=== PATIENT | male | born 1940 | race Caucasian/White ===

== ENCOUNTER → 2017-10-11 | Outpatient (CLI) | payer OTHER ==
[2015-10-15 10:45] VITALS: BP 149/82
[~2017-10-11] MED LIST: ASPI-630 PO; ATOR20TA58 PO; CALC625T PO; HYOS0.1264 PO; LISI10TA2 PO; MULT-245 PO; OMEG1CAP16 PO; OMEP40CA5 PO; PRAV40TA2 PO
--- NOTE | 2017-10-11 10:23 | RAD ---
Ultrasound soft tissue neck 10/11/2017 Clinical indications: Cervical lymph node enlargement. Comparison: None. Findings: There are mildly prominent bilateral cervical lymph nodes, largest on the right measures up to 0.5 cm with possible loss of the fatty hilum, and the largest on the left measuring up to 0.5 cm also with possible loss of the fatty hilum. Impression: Normal-sized bilateral lymph nodes, however possible loss of the fatty antonia and are indeterminate. Follow-up ultrasound in 3 months is recommended.
== END | disposition home or self-care (01) ==
LOC: US 08:22
PROVIDERS: ATTEND Family Medicine
DX: R59.9 Enlarged lymph nodes, unspecified (principal); F17.200 Nicotine dependence, unspecified, uncomplicated; Z72.89 Other problems related to lifestyle
CPT/HCPCS: 76536

== ENCOUNTER → 2017-10-25 | Outpatient (CLI) | payer OTHER ==
[2015-10-15 10:45] VITALS: BP 149/82
[~2017-10-25] MED LIST changes: +IOHEXOL 300 MG/ML 75 ML VIAL. IV ONE
[2017-10-25 11:16] LABS: GFR 72.8
--- NOTE | 2017-10-25 12:39 | RAD ---
Examination: CT angiography chest HISTORY: History of COPD, shortness of breath COMPARISON: 09/08/2014 TECHNIQUE: Axial CT angiography images were performed with IV contrast. Coronal and sagittal 3-D MIP reformats are performed Exposure: One or more of the following individualized dose reduction techniques were utilized for this examination: 1. Automated exposure control 2. Adjustment of the mA and/or kV according to patient size 3. Use of iterative reconstruction technique FINDINGS: The visualized thyroid gland grossly appears unremarkable. The central airways are patent. Mild cardiomegaly. Mild coronary artery calcifications. There is no evidence of filling defect identified in the main pulmonary arterial trunk and right and left main pulmonary arteries and the visualized lobar, segmental branches of the pulmonary arteries. Moderate distended/dilated esophagus or transposed colon again identified. There is a 4 mm pulmonary nodule identified in the right upper lobe of the lung grossly similar to prior exam Calcified granulomas identified in the bilateral lungs. No evidence of pleural effusion or pneumothorax. The visualized liver, spleen, adrenals grossly appears unremarkable. Partially visualized aortic stent graft identified in the abdomen. Moderate degenerative changes thoracic spine. IMPRESSION: 1. No evidence of pulmonary embolism. 2. Moderate distended/dilated esophagus or transposed colon again identified. 3. 4 mm pulmonary nodule right upper lobe of the lung grossly similar to prior exam. Electronically signed by: Des Bentley MD (10/25/2017 12:36 PM) [id number]
== END | disposition home or self-care (01) ==
LOC: CT 10:25
PROVIDERS: ATTEND Family Medicine
DX: R06.3 Periodic breathing (principal); J44.9 Chronic obstructive pulmonary disease, unspecified; R91.1 Solitary pulmonary nodule; F17.200 Nicotine dependence, unspecified, uncomplicated
CPT/HCPCS: 36415; 71275; 82565; 84520; Q9967

== ENCOUNTER 2020-05-26 07:45 | Observation (INO) | payer MEDICARE, OTHER ==
[~2020-05-26] VITALS: Ht 165.1 cm; Wt 70.5 kg
[~2020-05-26 07:45] MED LIST changes: -IOHEXOL 300 MG/ML 75 ML VIAL. IV ONE; +OMEP40CA45 PO; -OMEP40CA5 PO
--- NOTE | 2020-05-26 08:07 | PHYS DOC ---
Past History Past Medical History: GERD, High Cholesterol, Hypertension Past Surgical History: Other Smoking: Non-smoker Alcohol Use: None Drug Use: None General Adult EDM: Chief Complaint: CHEST PAIN HPI: HPI: 79-year-old male past medical history AAA w/stent graft, HTN, HLD, GERD w/ Wanda fundoplication, esophageal strictures and cataracts, presents to the ED with c/o "I think I had a heart attack, or maybe it'smy closed esophagus," c/o left sided chest pain described as a dull ache for the past week, presents within 5-10 minutes of waking with assocaited clamminess, for the past week. States he had a G-tube placed at [facility] maybe 6 months ago and since then has tried to eat solids, is concerned maybe he has food stuck. 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 EMR was reviewed and patient is CT of the chest in October 2017 that showed aortic aneurysm with stent graft placement, mild cardiomegaly and coronary artery calcifications. No associated syncope. On no AC. Review of Systems: Review of Systems: Constitutional: Denies fever or chills Eyes: Denies change in visual acuity HENT: Denies nasal congestion or sore throat Respiratory: Denies cough or shortness of breath Cardiovascular: Denies edema GI: Denies abdominal pain, nausea, vomiting, bloody stools or diarrhea : Denies dysuria Musculoskeletal: Denies back pain or joint pain Integument: Denies rash Neurologic: Denies headache, focal weakness or sensory changes Endocrine: Denies polyuria or polydipsia Lymphatic: Denies swollen glands Psychiatric: Denies depression or anxiety Heart Score: HEART Score for Chest Pain: HEART Score for Chest Pain Response (Comments) Value History Moderately Suspicious 1 ECG Nonspecific Repolarizatio 1 Age > 65 2 Risk Factors 1 or 2 Risk Factors 1 Troponin < Normal Limit 0 Total 5 Risk Factors: Risk Factors: DM, Current or recent (<one month) smoker, HTN, HLP, family history of CAD, obesity. Risk Scores: Score 0 - 3: 2.5% MACE over next 6 weeks - Discharge Home Score 4 - 6: 20.3% MACE over next 6 weeks - Admit for Clinical Observation Score 7 - 10: 72.7% MACE over next 6 weeks - Early Invasive Strategies Allergies: Allergies: Allergies Coded Allergies Type Severity Reaction Last Updated Verified No Known Drug Allergies 10/15/15 No Physical Exam: PE: Constitutional: Well developed, well nourished, no acute distress, non-toxic robles earance. [] HENT: Normocephalic, atraumatic, bilateral external ears normal, oropharynx moist, no oral exudates, nose normal. [] Eyes: PERRLA, EOMI, conjunctiva normal, no discharge. [] Neck: Normal range of motion, no tenderness, supple, no stridor. [] Cardiovascular:Heart rate regular rhythm, no murmur [] Lungs & Thorax: Bilateral breath sounds clear to auscultation [] Abdomen: Bowel sounds normal, soft, no tenderness, no masses, no pulsatile masses. [] Skin: Warm, dry, no erythema, no rash. [] Back: No tenderness, no CVA tenderness. [] Extremities: No tenderness, no cyanosis, no clubbing, ROM intact, no edema. [] Neurologic: Alert and oriented X 3, normal motor function, normal sensory function, no focal deficits noted. [] Psychologic: Affect normal, judgement normal, mood normal. [] Current Patient Data: Vital Signs: Vital Signs Date Time Temp Pulse Resp B/P (MAP) Pulse Ox O2 Delivery O2 Flow Rate FiO2 05/26/20 07:45 98.2 103 18 161/106 (124) 99 Room Air EKG: EKG: Sinus rhythm with prolonged NM interval 216, QTC 478, T wave inversions 1 and aVL, irregular rhythm, no ST elevations or ST depressions, Q waves in 3 and aVF compared with prior ekg from 02/2014, TWIs and Q waves are new Repeat EKG at 839 shows sinus rhythm with first-degree AV block, NM is 238, QTc 429, T wave inversion in 1 aVL with Q waves in 3 and aVF, no ST elevations or ST depressions Radiology/Procedures: Radiology/Procedures: []IMAGING REPORT Signed PATIENT: YAYO JASSO ACCOUNT: [id number] : 1940 LOCATION: ER AGE: 79 SEX: M EXAM STATUS: REG ER ORD. PHYSICIAN: DENIA MUKHERJEE DO REASON: none PROCEDURE: PORTABLE CHEST 1V AP chest x-ray HISTORY: History of COPD and shortness of breath. 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 Heart size normal. No pneumothorax. No pulmonary opacities. No pleural effusions. Calcified granuloma right lung base stable. Bones unremarkable. IMPRESSION: No acute process. Incidental finding stable to prior imaging as described above. Electronically signed by: Uvaldo Osman MD (05/26/2020 8:17 AM) [id number] DICTATED AND SIGNED BY: UVALDO OSMAN MD DATE: 05/26/20816 CC: HIWOT DUMONT MD; [facility] DO ~ Course & Med Decision Making: Course & Med Decision Making Pertinent Labs and Imaging studies reviewed. (See chart for details) Concern for chest pain in a moderate risk pt with new ekg findings and no prior cardiac workup. Pt also with elevated Cr of 1.6. Trop < 0.017. CXR with dilated esophagus seen on prior CT chest, no wide mediastinum. Heart score 5. I discussed with Dr. Husain who will follow up with patient with full consultation at [facility]. Dr. Dumont accepts hospital admission. Patient stable at time of admission and agrees with this plan. I have spoken with the patient and/or caregivers. I have explained the patient's condition, diagnosis and treatment plan based on the information available to me at this time. I have answered the patient's and/or caregivers questions and answered any concerns. The patient and/or caregivers have as good an understanding of the patient's diagnosis, condition and treatment plan as can be expected at this point. The patient has been stabilized within the capability of the emergency department. The patient will be transported for further care and management or will be moved to an observation or inpatient service. I have communicated with the staff or medical practitioner taking over this patient's care. Junaid Disclaimer: Junaid Disclaimer: This electronic medical record was generated, in whole or in part, using a voice recognition dictation system. Departure Departure: Impression: Primary Impression: Chest pain at rest Additional Impressions: JODI (acute kidney injury) T wave inversion in electrocardiogram Disposition: 09 ADMITTED INPATIENT Admitting Physician: Hiwot Dumont Condition: STABLE Referrals: HIWOT DUMONT MD (PCP) Justification of Admission: Justification of Admission: Justification of Admission Dx: Yes Angina: [facility] DENIA MUKHERJEE DO May 26, 2020 08:07
[2020-05-26 08:11] LABS: BASO # 0.1 x10^3/uL (0.0-0.2); BASO % 1 % (0-3); EOS # 0.1 x10^3/uL (0.0-0.7); EOS % 1 % (0-3); HEMATOCRIT 47.1 % (39.0-53.0); HEMOGLOBIN 16.3 g/dL (13.0-17.5); LYMPH # 3.6 x10^3/uL (1.0-4.8); LYMPH % 46 % (24-48); MEAN CORPUSCULAR HEMOGLOBIN 33 pg (25-35); MEAN CORPUSCULAR HGB CONC 35 g/dL (31-37); MEAN CORPUSCULAR VOLUME 95 fL (79-100); MONO # 0.6 x10^3/uL (0.0-1.1); MONO % 8 % (0-9); NEUT # 3.5 x10^3uL (1.8-7.7); NEUT % 45 % (31-73); PLATELET COUNT 224 x10^3/uL (140-400); RED BLOOD COUNT 4.97 x10^6/uL (4.30-5.70); RED CELL DISTRIBUTION WIDTH 13.1 % (11.5-14.5); WHITE BLOOD COUNT 7.9 x10^3/uL (4.0-11.0)
--- NOTE | 2020-05-26 08:20 | RAD ---
AP chest x-ray HISTORY: History of COPD and shortness of breath. 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 Heart size normal. No pneumothorax. No pulmonary opacities. No pleural effusions. Calcified granuloma right lung base stable. Bones unremarkable. IMPRESSION: No acute process. Incidental finding stable to prior imaging as described above. Electronically signed by: Jonathan Osman MD (05/26/2020 8:17 AM) [id number]
[2020-05-26 08:22] LABS: CREATININE 1.6 mg/dL (0.7-1.3); GFR 42.1; POTASSIUM 4.1 mmol/L (3.5-5.1)
--- NOTE | 2020-05-26 08:23 | EKG ---
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
[2020-05-26 08:34] LABS: ALBUMIN/GLOBULIN RATIO 0.9 (1.0-1.7); MAGNESIUM 2.3 mg/dL (1.8-2.4); TOTAL BILIRUBIN 0.3 mg/dL (0.2-1.0); TOTAL PROTEIN 8.4 g/dL (6.4-8.2)
--- NOTE | 2020-05-26 08:47 | EKG ---
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
--- NOTE | 2020-05-26 11:27 | NUR ---
Pt arrived to [facility] via EMS in stable condition. Pt alert/oriented, see VS. Pt belongings include watch, clothing, shoes, mask. Pt gave cell phone to his , though she may bring it up later. Pt skin is intact except for abrasion on L forearm, he sustained from his dog on 05/25. Dr Johnson notified of patients arrival.
[2020-05-26 11:34] VITALS: BP 120/80
--- NOTE | 2020-05-26 13:04 | PDOC ---
PROVIDER NOTE PROVIDER NOTE PROVIDER NOTE CC: Epigastric pain HPI: 79 y.o male presenting with epigastric discomfort similar to his prior GI issues from esophageal strictures. Denies any exertional angina or chest pain. EKG reviewed from ER, no acute findings. Pmhx: GERD s/p janet HTN DLP Sochx: No alcohol,tob or illicits. ALL: NKDa Meds reviewed. Cardiovascular: Normal heart sounds Respiratory: Normal breath sounds Abdomen: Soft, nontender, normal bowel sounds Mental Status: Alert, oriented X 3 Labs reviewed. Imaging reviewed. Impression: 1. non-cardiac chest pain. EKG/Trop wnl 2. GERD with esophageal dilation. Recs: 1. No further CV testing needed. 2. Consider outpt testing if GI eval does not improve symptoms. Pls call with questions. Thanks Justification of Admission: Justification of Admission: Justification of Admission Dx: Yes Angina: Symp at Rest TESSIE DOMINGUEZ MD May 26, 2020 13:04
--- NOTE | 2020-05-26 13:38 | HP ---
ADMIT DATE: 05/26/2020 HISTORY OF PRESENT ILLNESS: A 79-year-old male came in with intermittent chest pain. The patient had an AAA with stent graft and several other surgeries on his esophagus; although, he said he felt like he was having a heart attack, came in through the ER, was admitted for rule out AK protocol. Consult with silverware assembler, who felt the patient was stable to stay here. The patient has had a significant past medical history including tinnitus, cataracts, hypercholesterolemia, TB spots, it is not quite clear if he had actually tuberculosis or treated for it; abdominal surgery for esophageal strictures and a PEG tube placement for which he receives 5 bottles of Ensure Plus from 9:00 p.m. to 5 in the morning. He has had severe GERD and arthritis. He has had esophageal closures, wears dentures, blood disorders, anemia, had blood transfusions. He has had ulcer surgery. Vaccinations are up-to-date. On his esophageal strictures, the patient has had Wanda fundoplication esophageal strictures are noted. Because of these strictures, he has had the feeding tube placed in his stomach. PAST SURGICAL HISTORY: The patient notes he has dull achiness for the past week, present with 5-10 minutes of walking and associated clamminess. He is claiming otherwise. FAMILY HISTORY: Unremarkable. MEDICATIONS: Only include Levsin 1 tablet p.o. b.i.d. and Lipitor 20 mg a day. ALLERGIES: No known allergies. SOCIAL HISTORY: The patient denies smoking, alcohol or drug use presently. He is a full code. REVIEW OF SYSTEMS: Outside of his chest discomfort with walking, he denies any headaches, visual changes, blurred vision, double vision. Does have problems with esophageal regurgitation. He said he tried to eat by mouth and he leaned over and things came back up. He says he has bowel movements. He denies any problem with urination and neurologically intact. PHYSICAL EXAMINATION: GENERAL: Very pleasant gentleman, looks a little frightened, otherwise, unremarkable. VITAL SIGNS: Blood pressure 158/78, respiratory rate 18, pulse 103, temperature 98.2, 98% oxygen saturation. The patient is a pleasant gentleman. HEENT: Atraumatic, balding. Mouth and throat: Poor dentition. NECK: Supple. LUNGS: Diminished throughout. CARDIOVASCULAR: Regular sinus rhythm. S1, S2, without murmur, rub, thrill, or extra heart sounds. ABDOMEN: Soft. Feeding tube placement as noted. Triple lumen PEG tube placement, was placed initially I guess in 2016, 3 ports otherwise soft. Positive bowel sounds. No hepatosplenomegaly. EXTREMITIES: No clubbing, cyanosis or edema. GENITALIA: Normal male genitalia. NEUROLOGIC: Alert and oriented. Speech is fluent, spontaneous, appropriate. Cranial nerves 2-12 grossly intact. LABORATORY DATA: Chest x-ray taken down in the ER unremarkable. We will get a CAT scan. BUN and creatinine 13 and 1.6. Cardiac enzymes so far negative. Alkaline phosphatase 138. Albumin stable. The patient will be admitted to rule out AK protocol, get CT scan to check on the aortic aneurysm and strictures. The patient otherwise will continue to be monitored carefully, make further evaluation on him as indicated, feedings per PEG tube, monitored for any change in cardiac silhouette. EKG, not available. Anyway, we will continue to monitor. IMPRESSION: Chest pain, unknown etiology, esophageal strictures, PEG tube feedings, chronic kidney disease stage 3. Previous CT scans show coronary calcification. We will repeat a CT and make further evaluation on him as indicated per those results. HIWOT DUMONT MD DR: MIO/laura JOB#: [id number] / [id number]
[2020-05-26 15:00] VITALS: BP 145/83
--- NOTE | 2020-05-26 18:26 | NUR ---
Nurse in room to check on patient, patient complaining of chest pain rating 4/10 on the pain scale, requesting something 'more than tylenol for pain.' Dr Johnson notified of patient change in status and request for pain medication. New orders for EKG and morphine 2mg IV Q4 PRN. Orders placed. VS obtained BP 153/80 HR88, R20, 94% on RA, 98.0*
[2020-05-26 18:31] VITALS: BP 153/80
[2020-05-26] MEDS: MORPHINE SULFATE 2 MG/ML DISP.SYRIN. IV PRN (18:36)
--- NOTE | 2020-05-26 18:44 | EKG ---
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
[2020-05-26 20:32] VITALS: BP 117/75
[2020-05-26] MEDS ORDERED: HYOSCYAMINE 0.125 MG TAB.RAPDIS PO SCH (21:00)
[2020-05-26] MEDS ORDERED: ATORVASTATIN CALCIUM 20 MG TABLET PO SCH (21:00)
[2020-05-26] MEDS: SMZ/TMP 800/160MG TABLET. PO SCH (21:01)
[2020-05-26 23:16] VITALS: BP 122/74
[2020-05-27 05:53] VITALS: BP 131/68
[2020-05-27] MEDS: MORPHINE SULFATE 2 MG/ML DISP.SYRIN. IV PRN (06:17)
[2020-05-27] MEDS ORDERED: LACTOBACILLUS RHAMNOSUS GG 1 CAPSULE. PO SCH (09:00)
[2020-05-27] MEDS: SMZ/TMP 800/160MG TABLET. PO SCH (10:11)
[2020-05-27 11:00] VITALS: BP 122/74
[2020-05-27] MEDS ORDERED: ESOM40CA PO (11:28)
[2020-05-27] MEDS ORDERED: Smz/Tmp 800/160MG PO (11:28)
== END 2020-05-27 12:00 | disposition home or self-care (01) ==
LOC: ER 07:45 → 1 SOUTH 09:59 → INTOOBSV 09:59
PROVIDERS: ADMIT Family Medicine; ATTEND Family Medicine
DX: R07.89 Other chest pain (principal); N17.9 Acute kidney failure, unspecified; K22.2 Esophageal obstruction; I12.9 Hypertensive chronic kidney disease with stage 1 through stage 4 chronic kidney disease, or unspecified chronic kidney disease; N18.3 Chronic kidney disease, stage 3 (moderate); R94.31 Abnormal electrocardiogram [ECG] [EKG]; I71.4 Abdominal aortic aneurysm, without rupture; E78.00 Pure hypercholesterolemia, unspecified; K21.9 Gastro-esophageal reflux disease without esophagitis; M19.90 Unspecified osteoarthritis, unspecified site; D64.9 Anemia, unspecified; Z98.890 Other specified postprocedural states; Z95.1 Presence of aortocoronary bypass graft
CPT/HCPCS: 36415; 71045; 80053; 83690; 83735; 83880; 84484; 85025; 85610; 85730; 93005; 96374; 96376; 99285; G0378; J2270; G0379

== ENCOUNTER 2020-06-23 12:43 | Emergency (ER) | payer MEDICARE ==
[~2020-06-23] VITALS: Ht 165.1 cm; Wt 71.6 kg
[~2020-06-23 12:43] MED LIST changes: +ESOM40CA PO; +Smz/Tmp 800/160MG PO
--- NOTE | 2020-06-23 12:51 | PHYS DOC ---
Past History Past Medical History: GERD, High Cholesterol, Hypertension Past Surgical History: Other Smoking: Non-smoker Alcohol Use: None Drug Use: None General Adult HPI: HPI: The history was obtained from the patient. Patient is a 79-year-old man with PMH multiple comorbidities who presents with a chief complaint of PEG tube malfunction. Patient states he recently had PEG tube placed 4 days ago. He states that he feels as though the PEG tube has become slightly dislodged. He states PEG tube not fall out of his stoma but he feels that is longer than usual. Denies any injury. Denies vomiting. States he is entirely PEG tube dependent for nutrition that he gives himself overnight. Denies any abdominal pain. Chart review was performed and patient has a history of abdominal surgery for esophageal strictures and a PEG tube placement for which he receives 5 bottles of Ensure Plus from 9:00 p.m. to 5 in the morning. He has had severe GERD. He has had ulcer surgery. On his esophageal strictures, the patient has had Wanda fundoplication esophageal strictures are noted. Because of these strictures, he has had the feeding tube placed in his stomach. I did speak with the patient's GI specialist Dr. Cobian he states that the PEG tube was adjusted 4 days ago but he has had the stoma for approximately a year. Review of Systems: Review of Systems: Constitutional: Denies fever or chills Eyes: Denies change in visual acuity HENT: Denies nasal congestion or sore throat Respiratory: Denies cough or shortness of breath Cardiovascular: Denies chest pain or edema GI: PEG tube dislodgment : Denies dysuria Musculoskeletal: Denies back pain or joint pain Integument: Denies rash Neurologic: Denies headache, focal weakness or sensory changes Endocrine: Denies polyuria or polydipsia Lymphatic: Denies swollen glands Psychiatric: Denies depression or anxiety Heart Score: Risk Factors: Risk Factors: DM, Current or recent (<one month) smoker, HTN, HLP, family history of CAD, obesity. Risk Scores: Score 0 - 3: 2.5% MACE over next 6 weeks - Discharge Home Score 4 - 6: 20.3% MACE over next 6 weeks - Admit for Clinical Observation Score 7 - 10: 72.7% MACE over next 6 weeks - Early Invasive Strategies Allergies: Allergies: Allergies Coded Allergies Type Severity Reaction Last Updated Verified No Known Drug Allergies 10/15/15 No Physical Exam: PE: Constitutional: Well developed, well nourished, no acute distress, non-toxic appearance. [] HENT: Normocephalic, atraumatic, bilateral external ears normal, oropharynx moist, no oral exudates, nose normal. [] Eyes: PERRLA, EOMI, conjunctiva normal, no discharge. [] Neck: Normal range of motion, no tenderness, supple, no stridor. [] Cardiovascular:Heart rate regular rhythm, no murmur [] Lungs & Thorax: Bilateral breath sounds clear to auscultation [] Abdomen: Soft, nontender, nonacute abdomen. No involuntary guarding or rigidity noted. No acute peritonitis. PEG tube noted to be 6 cm at the skin. No surrounding erythema or discharge noted. No abdominal tenderness. Skin: Warm, dry, no erythema, no rash. [] Back: No tenderness, no CVA tenderness. [] Extremities: No tenderness, no cyanosis, no clubbing, ROM intact, no edema. [] Neurologic: Alert and oriented X 3, normal motor function, normal sensory function, no focal deficits noted. [] Psychologic: Affect normal, judgement normal, mood normal. [] Current Patient Data: Vital Signs: Vital Signs Date Time Temp Pulse Resp B/P (MAP) Pulse Ox O2 Delivery O2 Flow Rate FiO2 06/23/20 13:40 98.0 75 18 166/105 (125) 95 EKG: EKG: [] Radiology/Procedures: Radiology/Procedures: [address] [address] IMAGING REPORT Signed PATIENT: YAYO JASSO ACCOUNT: [id number] : 1940 LOCATION: ER AGE: 79 SEX: M EXAM STATUS: REG ER ORD. PHYSICIAN: NIEVES KRAUSE DO REASON: confirm PEG tube placement - omni 300 50mls PROCEDURE: KUB KUB History: Reason: confirm PEG tube placement Technique: Supine view of the abdomen after injection of contrast via gastrostomy tube. Comparison: None. Findings: Contrast injection of gastrostomy tube with opacification of the stomach and proximal duodenum. No evidence of contrast extravasation. Minimal small bowel gas. Air and stool scattered throughout the imaged colon. Multilevel lumbar spondylosis. Aortobiiliac endograft repair noted. Impression: 1. Gastrostomy tube check. No evidence of contrast extravasation to suggest leak. 2. Nonobstructed bowel gas pattern. Electronically signed by: Jose Smith DO (06/23/2020 2:12 PM) [id number] DICTATED AND SIGNED BY: JOSE SMITH DO DATE: 06/23/20 1412 CC: HIWOT DUMONT MD; NIEVES KRAUSE DO ~ [] Course & Med Decision Making: Course & Med Decision Making Pertinent Labs and Imaging studies reviewed. (See chart for details) [] Patient is a well-appearing 79-year-old male who presents with concern for PEG tube dislodgment. Exam noted above. I did discuss the case directly with Dr. Giraldo who adjusted his G-tube 4 days ago. Per his recommendations Gastrografin study with KUB was obtained. No signs of extravasation on imaging. No signs of free air under the diaphragm to suggest perforation. Patient's exam is not consistent with perforation as well. Patient did actually leave the emergency department prior to imaging results finalizing. I did explain to the patient prior to him leaving that we cannot fully confirm that the PEG tube is in the appropriate place unless he stays for radiology confirmation. He states he understands this and would like to leave and to call him with results. Given we do not have imaging results prior to him leaving department he did elect to leave AGAINST MEDICAL ADVICE. He did appear to be alert and oriented x3 and clinically sober. He did appear to have capacity and understanding of his basic healthcare needs as well as potential consequences. Prior to him leaving department he was instructed follow-up with his primary care physician and his GI specialist next week. Dragon Disclaimer: Dragon Disclaimer: This electronic medical record was generated, in whole or in part, using a voice recognition dictation system. Departure Departure: Impression: Primary Impression: PEG tube malfunction Disposition: AGAINST MEDICAL ADVICE Condition: STABLE Referrals: HIWOT DUMONT MD (PCP) KEYA VALENTINE MD Patient Instructions: PEG, Home Care, [id number] Additional Instructions: Please follow-up with your primary care physician and GI specialist in the next week. NIEVES KRAUSE DO Jun 23, 2020 12:50
[2020-06-23] MEDS ORDERED: IOHEXOL 300 MG/ML 50 ML VIAL. INT CAT ONE (13:30)
[2020-06-23 13:40] VITALS: BP 166/105
--- NOTE | 2020-06-23 14:15 | RAD ---
KUB History: Reason: confirm PEG tube placement Technique: Supine view of the abdomen after injection of contrast via gastrostomy tube. Comparison: None. Findings: Contrast injection of gastrostomy tube with opacification of the stomach and proximal duodenum. No evidence of contrast extravasation. Minimal small bowel gas. Air and stool scattered throughout the imaged colon. Multilevel lumbar spondylosis. Aortobiiliac endograft repair noted. Impression: 1. Gastrostomy tube check. No evidence of contrast extravasation to suggest leak. 2. Nonobstructed bowel gas pattern. Electronically signed by: Jose Smith DO (06/23/2020 2:12 PM) [id number]
== END 2020-06-23 14:15 | disposition left against medical advice (07) ==
LOC: ER 12:43
DX: K94.23 Gastrostomy malfunction (principal); K21.9 Gastro-esophageal reflux disease without esophagitis; E78.00 Pure hypercholesterolemia, unspecified; I10 Essential (primary) hypertension
CPT/HCPCS: 74018; 99283; Q9967